=== PATIENT | male | born 2005 | race Caucasian/White ===

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

== ENCOUNTER 2025-02-06 12:36 | Emergency (ER) | payer OTHER ==
[~2025-02-06] VITALS: Ht 180.3 cm; Wt 154.7 kg
[~2025-02-06 12:36] MED LIST changes: +OMEPRAZOLE20 MG PO
[2025-02-06] MEDS ORDERED: PANTOPRAZOLE SODIUM 40 MG/10 ML VIAL IV ONE (13:30)
[2025-02-06] MEDS ORDERED: SODIUM CHLORIDE 0.9% 1,000 ML IV ONE (13:30)
[2025-02-06] MEDS ORDERED: ondansetron HCL 4 MG/2 ML VIAL IV PRN (13:30)
[2025-02-06 13:56] LABS: BASOPHILS 0.5 % (0-2); EOSINOPHILS 1.7 % (0-6); HEMATOCRIT 48.7 % (35.0-50.0); HEMOGLOBIN 16.9 g/dL (12.0-18.0); LYMPHOCYTES 27.2 % (24-44); MCHC 34.6 g/dl (30-36); MCV 80.9 fl (81-99); MONOCYTES 10.7 % (0-12); NEUTROPHILS 59.9 % (39-80); PLATELET COUNT 248 K/uL (140-440); RBC 6.02 M/ul (4.3-5.7); RDW 14.5 (10.5-15.0)
[2025-02-06 14:10] LABS: ALBUMIN 4.3 g/dL (3.4-5.0); ALBUMIN/GLOBULIN RATIO 1.13 (1.1-2.4); ANION GAP 17.8 (7-21); BILIRUBIN, TOTAL 0.3 mg/dL (0.2-1.0); BUN/CREATININE RATIO 13.41 (6.0-28.6); CREATININE, SERUM 0.82 mg/dL (0.70-1.30); POTASSIUM 3.8 mmol/L (3.5-5.1); PROTEIN, TOTAL 8.1 g/dL (6.4-8.2)
[2025-02-06 15:30] VITALS: BP 129/76
== END 2025-02-06 15:31 | disposition home or self-care (01) ==
LOC: ED 12:36
PROVIDERS: Emergency Medicine
DX: K29.20 Alcoholic gastritis without bleeding (principal); I10 Essential (primary) hypertension; K21.9 Gastro-esophageal reflux disease without esophagitis
CPT/HCPCS: 36415; 80053; 85025; 96361; 96374; 96375; 99284-25; J2405; J2470; J7030